=== PATIENT | male | born 1955 | race Caucasian/White ===

== ENCOUNTER → 2020-08-29 | Outpatient (CLI) | payer MEDICARE | LOC: NM 08:52 | DX: R14.0 Abdominal distension (gaseous) (principal); K30 Functional dyspepsia | CPT/HCPCS: 78264; A9541 ==

== ENCOUNTER → 2020-09-08 | Outpatient (CLI) | payer MEDICARE | LOC: US 13:58 → MRI 15:30 | DX: R47.01 Aphasia (principal) | CPT/HCPCS: 70553; 93880; A9577 ==

== ENCOUNTER → 2021-10-02 | Outpatient (CLI) | payer MEDICARE | LOC: HEART 5 11:38 | DX: R06.02 Shortness of breath (principal); F17.210 Nicotine dependence, cigarettes, uncomplicated | CPT/HCPCS: 94060; 94729 ==